=== PATIENT | male | born 1965 ===

== ENCOUNTER → 2017-09-18 | Outpatient (CLI) | payer OTHER ==
[~2017-09-18] VITALS: Ht 182.9 cm; Wt 85.7 kg
[~2017-09-18] MED LIST: BUCALSEP SPRAY30 ML MM; DOLOGESIC CAPSU1 CAP PO; LIPITOR20 MG PO; OSEL75CA PO; ZYRTEC10 MG PO
== END | disposition home or self-care (01) ==
LOC: PPHC 17:37
DX: Z01.89 Encounter for other specified special examinations (principal)

== ENCOUNTER → 2018-05-06 08:32 | Outpatient (CLI) | payer OTHER | END | disposition home or self-care (01) | LOC: LAB 08:32 | DX: R50.9 Fever, unspecified (principal); J11.1 Influenza due to unidentified influenza virus with other respiratory manifestations ==

== ENCOUNTER → 2018-05-08 | Outpatient (CLI) | payer OTHER | END | disposition home or self-care (01) | LOC: LAB 06:30 | DX: B97.89 Other viral agents as the cause of diseases classified elsewhere (principal) ==

== ENCOUNTER → 2018-05-10 07:14 | Outpatient (CLI) | payer OTHER | END | disposition home or self-care (01) | LOC: LAB 07:14 | DX: B97.89 Other viral agents as the cause of diseases classified elsewhere (principal) ==

== ENCOUNTER → 2018-11-29 17:02 | Outpatient (CLI) | payer OTHER | END | disposition home or self-care (01) | LOC: LAB 17:02 | DX: J11.1 Influenza due to unidentified influenza virus with other respiratory manifestations (principal); J11.81 Influenza due to unidentified influenza virus with encephalopathy ==

== ENCOUNTER → 2019-02-08 11:15 | Outpatient (CLI) | payer OTHER | END | disposition home or self-care (01) | LOC: LAB 11:15 | DX: J11.1 Influenza due to unidentified influenza virus with other respiratory manifestations (principal); J11.81 Influenza due to unidentified influenza virus with encephalopathy ==

== ENCOUNTER 2019-04-03 10:15 | Emergency (ER) | payer OTHER ==
[~2019-04-03] VITALS: Ht 182.9 cm; Wt 86.2 kg
== END 2019-04-03 13:41 | disposition home or self-care (01) ==
LOC: ER 10:15
DX: T21.12XA Burn of first degree of abdominal wall, initial encounter (principal); X11.8XXA Contact with other hot tap-water, initial encounter; Y93.89 Activity, other specified; Y92.89 Other specified places as the place of occurrence of the external cause; Y99.8 Other external cause status

== ENCOUNTER 2019-09-16 16:56 | Outpatient (CLI) | payer OTHER | END 2019-09-16 17:28 | disposition home or self-care (01) | LOC: LAB 16:56 | DX: J11.1 Influenza due to unidentified influenza virus with other respiratory manifestations (principal); J06.9 Acute upper respiratory infection, unspecified ==

== ENCOUNTER → 2020-05-06 07:00 | Outpatient (CLI) | payer OTHER | END | disposition home or self-care (01) | LOC: LAB 05-05 09:05 | DX: J11.1 Influenza due to unidentified influenza virus with other respiratory manifestations (principal); D64.89 Other specified anemias; E78.89 Other lipoprotein metabolism disorders; E88.89 Other specified metabolic disorders; E03.8 Other specified hypothyroidism; N39.0 Urinary tract infection, site not specified; N41.8 Other inflammatory diseases of prostate; Z12.12 Encounter for screening for malignant neoplasm of rectum; E11.9 Type 2 diabetes mellitus without complications; D51.8 Other vitamin B12 deficiency anemias; E55.9 Vitamin D deficiency, unspecified ==

== ENCOUNTER → 2020-05-19 12:24 | Outpatient (CLI) | payer OTHER | END | disposition home or self-care (01) | LOC: LAB 12:24 | PROVIDERS: ATTEND Internal Medicine Gastroenterology | DX: D81.89 Other combined immunodeficiencies (principal); D70.8 Other neutropenia; D45 Polycythemia vera; D75.9 Disease of blood and blood-forming organs, unspecified ==

== ENCOUNTER 2021-07-12 08:00 | Outpatient (CLI) | payer OTHER | END 2021-07-12 08:30 | disposition home or self-care (01) | LOC: PPH VACUNA 08:00 | PROVIDERS: ATTEND Emergency Medicine Pediatric Emergency Medicine | DX: Z23 Encounter for immunization (principal) ==

== ENCOUNTER 2021-08-11 13:46 | Outpatient (CLI) | payer OTHER | END 2021-08-11 13:50 | disposition home or self-care (01) | LOC: LAB 13:46 | PROVIDERS: ATTEND Emergency Medicine Pediatric Emergency Medicine | DX: Z20.828 Contact with and (suspected) exposure to other viral communicable diseases (principal) ==

== ENCOUNTER → 2021-08-23 06:15 | Outpatient (CLI) | payer OTHER | END | disposition home or self-care (01) | LOC: LAB 06:15 | PROVIDERS: ATTEND Emergency Medicine Pediatric Emergency Medicine | DX: Z03.818 Encounter for observation for suspected exposure to other biological agents ruled out (principal) ==

== ENCOUNTER 2021-11-19 13:11 | Outpatient (CLI) | payer OTHER | END 2021-11-19 13:58 | disposition home or self-care (01) | LOC: LAB 13:11 | PROVIDERS: ATTEND Emergency Medicine Pediatric Emergency Medicine | DX: Z20.828 Contact with and (suspected) exposure to other viral communicable diseases (principal); Z20.818 Contact with and (suspected) exposure to other bacterial communicable diseases ==

== ENCOUNTER 2021-11-27 12:44 | Emergency (ER) | payer OTHER ==
[~2021-11-27] VITALS: Ht 236.2 cm; Wt 86.2 kg
== END 2021-11-27 15:43 | disposition home or self-care (01) ==
LOC: ER 12:44
DX: B34.9 Viral infection, unspecified (principal)

== ENCOUNTER 2022-08-09 06:51 | Outpatient (CLI) | payer OTHER | END 2022-08-09 06:52 | disposition home or self-care (01) | LOC: LAB 06:51 | PROVIDERS: ATTEND Obstetrics & Gynecology | DX: Z20.818 Contact with and (suspected) exposure to other bacterial communicable diseases (principal) ==

== ENCOUNTER 2022-08-15 07:55 | Outpatient (CLI) | payer OTHER | END 2022-08-15 23:00 | disposition home or self-care (01) | LOC: LAB 07:55 | PROVIDERS: ATTEND Obstetrics & Gynecology | DX: Z20.828 Contact with and (suspected) exposure to other viral communicable diseases (principal); Z20.818 Contact with and (suspected) exposure to other bacterial communicable diseases ==

== ENCOUNTER → 2025-04-30 | Outpatient (CLI) | payer OTHER | END | disposition home or self-care (01) | LOC: RAD 17:06 | PROVIDERS: ATTEND Internal Medicine Hematology & Oncology | DX: S49.92XA Unspecified injury of left shoulder and upper arm, initial encounter (principal) ==

== ENCOUNTER → 2025-05-06 | Outpatient (CLI) | payer OTHER | END | disposition home or self-care (01) | LOC: SONOGRAMA 06:31 | PROVIDERS: ATTEND Internal Medicine Hematology & Oncology | DX: M25.512 Pain in left shoulder (principal) ==

== ENCOUNTER 2025-07-20 05:52 | Outpatient (CLI) | payer OTHER ==
[2025-07-20 07:46] LABS: URINE APPEARANCE Clear; URINE BILIRRUBIN Negative (NEGATIVE); URINE BLOOD Negative; URINE COLOR Yellow; URINE GLUCOSE Negative (NEGATIVE); URINE KETONE Negative (NEGATIVE); URINE LEUKOCYTE Negative; URINE NITRATE Negative; URINE PROTEIN Negative (NEGATIVE); URINE UROBILINOGEN 1.0 E.U./dl
[2025-07-20 07:48] LABS: BASO % 1.2 % (0.1-1.2); EOS # 0.00 (0.04-0.54); EOS % 0.0 % (0.7-7.0); LYMPH # 1.33 (1.18-3.74); LYMPH % 41.3 % (19.3-53.1); MEAN PLATELET VOLUME 10.70 fl (9.4-12.4); MONO # 0.38 (0.24-0.82); MONO % 11.8 % (4.7-12.5); NEUT # 1.46 (1.56-6.13); NEUT % 45.4 % (34.0-71.1); RED CELL DISTRIBUTION WIDTH 13.2 % (11.6-14.4)
[2025-07-20 07:50] LABS: URINE RBC 3.8 uL (0.0-20.8)
[2025-07-20 07:55] LABS: URINE BACTERIA 1.1 uL (0.0-1933); URINE CAST 0.00 uL (0.0-1.40); URINE EPITHELIAL CELLS 0.9 uL (0.0-38.8); URINE WBC 1.0 uL (0.0-23.2)
[2025-07-20 08:19] LABS: INR 1.04
[2025-07-20 08:51] LABS: ALT/SGPT 24.0 U/L (12-78); AST/SGOT 17.0 U/L (15-37); BILIRUBIN TOTAL 0.61 mg/dL (0.3-1.2); BUN CREA RATIO 19.0 (7.0-25.0); CHOL HDL RATIO 4.0 (0-5.0); CREATININE SERUM 1.19 mg/dL (0.70-1.30); GFR 63.01; GLOBULINA 3.3 G/DL (2.4-3.5); GLUCOSE FASTING 87.0 mg/dL (65-100); HDL 51.0 mg/dl (40-60); LDL 133.0 mg/dl (0-130); OSMOLALITY SERUM 290.0 MOSM/KG (275-295); VLDL 20.0 (0-39)
[2025-07-20 08:52] LABS: PROSTATIC SPECIFIC ANTIGEN 5.33 NG/ML (0.010-4.00)
[2025-07-20 11:23] LABS: VITAMIN D3 25 HYDROXY 47.61 ng/ml (30-120)
[2025-07-21 12:11] LABS: PROLACTIN 22.2 ng/mL (3.6-25.2)
== END 2025-07-20 06:29 | disposition home or self-care (01) ==
LOC: LAB 05:52
DX: D64.9 Anemia, unspecified (principal); R10.9 Unspecified abdominal pain; E11.9 Type 2 diabetes mellitus without complications; Z79.01 Long term (current) use of anticoagulants; N39.0 Urinary tract infection, site not specified; R82.71 Bacteriuria; R97.20 Elevated prostate specific antigen [PSA]; R86.1 Abnormal level of hormones in specimens from male genital organs; E78.5 Hyperlipidemia, unspecified; E53.8 Deficiency of other specified B group vitamins; E55.9 Vitamin D deficiency, unspecified; E23.0 Hypopituitarism; E22.1 Hyperprolactinemia